=== PATIENT | female | born 1950 | race Caucasian/White ===

== ENCOUNTER 2016-12-24 08:52 | Day surgery (SDC) | payer MEDICARE, OTHER ==
[2016-12-24] VITALS (12 sets, daily range): BP systolic 122–174; BP diastolic 72–96; PULSE 54–107; RESP 13–25; O2SAT 94–99
[~2016-12-24] VITALS: Ht 157.5 cm; Wt 56.3 kg
[~2016-12-24 08:52] MED LIST: ALPR0.5T8 PO; CITA40TA PO; CLOP75TA3 PO; Clindamycin Inj 900 MG in IV Premix 1 EACH IV SCH; NEBI2.5T5 PO; PANT40TA2 PO; ZLP10T PO
[2016-12-24] MEDS ORDERED: Succinylcholine Chloride 20 mg/mL 5 mL Inj ONE (08:53)
[2016-12-24] MEDS ORDERED: Propofol 10,000 mCg/mL 20 mL Inj ONE (08:53)
[2016-12-24] MEDS ORDERED: fentaNYL-PF 50 mCg/mL 2 mL Inj ONE (08:53)
[2016-12-24] MEDS ORDERED: EPHEDrine/NS 5 mg/mL 5 mL Syringe ONE (08:53)
[2016-12-24] MEDS ORDERED: Dexamethasone 4 mg/mL Inj ONE (08:53)
[2016-12-24] MEDS ORDERED: HYDROmorphone 2 mg/mL Inj ONE (08:53)
[2016-12-24] MEDS ORDERED: MetoCLOpramide 5 mg/mL 2 mL Inj ONE (08:53)
[2016-12-24] MEDS ORDERED: Ondansetron 2 mg/mL 2 mL Inj ONE (08:53)
--- NOTE | 2016-12-24 09:38 | PCM.HPANE ---
Patient Data Date of Service: December 24, 2016 Surgeon Admitting Provider: Attending Provider:Terell Henry MD Primary Care Physician:Isi Landry MD Other Provider:Dariana Stinson Anesthesia Reason for Visit Bilateral Macromastia, Back Pain, Rash Ht/WT & BMI Height (Feet): 5 Height (Inches): 2 Weight (Kilograms): 55.338 Body Mass Index 22.00 Allergies Coded Allergies: Penicillins (Verified Allergy, Severe, SWELLING,ANAPHYLAXIS, 12/19/16) Past Anesthesia History Anesthesia History: Denies:: Anesthesia Reactions, Malignant Hyperthermia Diabetes History Hx Diabetes?: No MRSA MRSA: No Medications Blood Thinner: Plavix Last Dose Blood Thinner: Dec 11, 2016 Hypertension Medication: Yes Home Meds Incl Beta Linda: Yes (BYSTOLIC) Reported Medications Alprazolam 0.5 Mg Tablet0.5 Mg PO DAILY PRN For Anxiety Ref 0 12/23/16 Zolpidem (Ambien)10 Mg Tablet5-10 Mg PO HS PRN For Insomnia Ref 0 12/23/[address] (Protonix)40 Mg [id number] Mg PO DAILY Ref 0 12/19/16 Clopidogrel Bisulfate (Plavix)75 Mg [id number] Mg PO DAILY 30 Days Ref 0 12/19/16 Citalopram Hydrobromide (Celexa)40 Mg [id number] Mg PO DAILY Ref 0 12/19/16 Nebivolol (Bystolic)2.5 Mg Tablet2.5 Mg PO DAILY Ref 0 12/19/16 History History of ENT Problems?: Yes HEENT History: Denies:: Abnormal Airway Cataracts Difficult Intubation Dysphagia Glaucoma Hearing Problem Sinus Problem TMJ Denture Type: None Teeth Condition: Within Normal Limits Other HEENT Pertinent History: S/P TONSILLECTOMY Hx of Heart Problems?: Yes Cardiovascular History: Positive for:: Heart Murmur (PT REPORTS MURMUR, BUT NONE NOTED ON EXAM CURRENTLY) Hypertension Denies:: Chest Pain Other Cardiac History: 4+ METS Hx of Respiratory Problem?: No Respiratory History: Denies:: Use of C-PAP Machine Hx Neurologic Problems?: Yes Neurological History: Positive for:: CVA (02/2006) TIA (03/2006) Other Neurological Pertinent: R-sided hemiplegia, difficulty w/ fine motor Hx of GI Problems?: Yes Gastrointestinal History: Positive for:: Gastroesphageal Reflux Other GI Pertinent History: S/P APPY Hx of Problems?: No Female Hx: Positive for:: Problems with Breasts? (B/L MACROMASTIA=CURRENT PROBLEM) Denies:: Currently (S/P BTL) Skin History: Positive for:: History Skin Disorders? (INFRAMAMMARY/UPPER ABD RASH, PSORIASIS) Denies:: Pressure Ulcers Hx Musculoskeletal Problems?: Yes Musculoskeletal History: Denies:: Back Injury (C/OF UPPER BACK PAIN, NECK & SHOULDER PAIN R/T MACROMASTIA) Hx of Psycho/Social Problems?: No Hx Surgeries?: Yes (TONSILLECTOMY,BTL) Hx Any Other Health Problems?: Yes Other History: Positive for:: Hospitalization (CVA) Denies:: Cancer Endocrine Disease Thyroid Disease Hx Diabetes: No Hx Alcohol Use: NoHx Substance Use: No Smoking Status: Former Smoker Have You Smoked inLast 12 mo: No Stop/Bang Treated for Sleep Apnea?: No Do You Have a CPAP Machine?: No S-Snoring: Do You Snore Loudly: No T-Tired: feel tired, fatigued: No O-Obsered: Observed not breath: No P-Blood Pressure: treated: Yes B- Body Mass Index > 35 kg/m2: No A- Age over 50: Yes N- Neck Large Circumference: No G- Gender Male: No DARWIN Total Score: 2 DARWIN Risk Assessment: Low Risk, <3 Yes Risk Assessment Category Category 1A: Patient has history of documented sleep apnea, and HAS NOT received any narcotic, sedative or anesthesia administration during this stay. Category 1B: Patient has history of documented sleep apnea, and HAS received any narcotic , sedative or anesthesia administration during this stay Category 2: Patient has SUSPECTED Obstructive Sleep Apnea, and HAS received any narcotic , sedative or anesthesia administration during this stay. Category 3: Patient has SUSPECTED Obstructive Sleep Apnea and HAS NOT received narcotic, sedative or anesthesia administration during this stay. Category 4: Outpatient in Procedural Areas with known sleep apnea or who screen positive for High Risk via the STOP/BANG questionnaire. Exam Exam Vital Signs Vital Signs Date Time Temp Pulse Resp B/P Pulse Ox O2 Delivery O2 Flow Rate FiO2 12/24/16 09:20 36.2 54 16 122/72 98 Room Air General Appearance: Alert, Oriented X3, Cooperative, No Acute Distress HEENT/AIRWAY: MP 2, Neck Movement (FROM), Mouth Opening (3), Other (tmd<3, > 1cm overbite) Lungs: Normal Air Movement Heart: Exam Unremarkable, Regular Rate/Rhythm, Normal S1, Normal S2, No Murmurs /Rubs/Gallops Plan Impression Patient chart reviewed, patient interviewed and anesthestic plan with risks, benefits, and alternatives discussed, and informed consent obtained. ASA Physical Status: ASA3 Severe Disease Anesthetic Plan: GA Bene/Risks/Altern/Consents: Yes HP Complete Prior to Induction: Yes Esequiel Arriaga MD December 24, 2016 09:38
[2016-12-24] MEDS: Lactated Ringer's 1,000 ML IV SCH ×2 (09:45→10:58)
[2016-12-24] MEDS ORDERED: MetoCLOpramide 5 mg/mL 2 mL Inj IVPUSH PRN (11:10)
[2016-12-24] MEDS ORDERED: Lactated Ringer's 500 ML IV PRN ×2 (11:10)
[2016-12-24] MEDS ORDERED: HYDROmorphone 1 mg/mL Inj IVPUSH PRN ×2 (11:10)
[2016-12-24] MEDS ORDERED: Lactated Ringer's 1,000 ML IV SCH ×2 (11:10)
[2016-12-24] MEDS ORDERED: Ondansetron 2 mg/mL 2 mL Inj IVPUSH PRN ×2 (11:10)
[2016-12-24] MEDS ORDERED: EPHEDrine Sulfate 50 mg/mL Inj IVPUSH PRN (11:10)
[2016-12-24] MEDS ORDERED: Dexamethasone 4 mg/mL Inj IVPUSH PRN (11:10)
[2016-12-24] MEDS ORDERED: Phenylephrine 10,000 mCg/mL Inj IVPUSH PRN (11:10)
[2016-12-24] MEDS ORDERED: fentaNYL-PF 50 mCg/mL 2 mL Inj IVPUSH PRN ×2 (11:10)
[2016-12-24] MEDS ORDERED: Lactated Ringer's 1,000 ML IV ONE (11:25)
[2016-12-24] MEDS ORDERED: HYDROcodone-APAP 10-325 mg PO PRN (12:30)
--- NOTE | 2016-12-25 00:51 | PCM.ANEP1 ---
Post Anesthesia Phase 1 PACU Phase 1 Assessment Date of Service: December 24, 2016 Anesthetic Administered: GA Level of Alertness: Awake, talking [place]'s with Equal Strength: Yes Pain: No Pain Scale Score: 0 Nausea or Vomiting: No Oxygen Delivery: Simple Mask Lungs: Normal Air Movement Complications: No Follow up Care: No Esequiel Arriaga MD December 25, 2016 00:51
--- NOTE | 2016-12-25 11:54 | OP ---
[address] [address] OPERATIVE REPORT PATIENT: PERLA ALMAZAN : 1950 MR#: [id number] ADMIT: 12/24/2016 JOB ID: [id number] DATE OF SURGERY: 12/24/2016 PREOPERATIVE DIAGNOSIS(ES): Bilateral symptomatic macromastia. POSTOPERATIVE DIAGNOSIS(ES): Bilateral symptomatic macromastia. PROCEDURE: Bilateral breast reduction. SURGEON: Terell Henry M.D. SERVICE STATION CASHIER: Rico Fajardo PA-C who was present for necessary retraction, exposure and closure. ANESTHESIA: General anesthesia. ESTIMATED BLOOD LOSS: 30 cc. COMPLICATIONS: None apparent. SPECIMEN: Bilateral breast tissue to Pathology. Right side weighing 230 g, left side 230 g. DRAINS: Bilateral #15 round Glenn drain. COMPLICATIONS: None apparent. INDICATIONS FOR PROCEDURE: This is a 66-year-old female patient with a chronic history of bilateral symptomatic macromastia. The patient has back pain. The patient also has significant rash and infection under her breasts and in her upper abdomen. These have been refractory to conservative management. At this point, bilateral breast reductions are indicated. PROCEDURES AND FINDINGS: The patient was identified in the preoperative area. Surgical site was marked. With the patient in a sitting position, sternal notch was marked. The patient's midline was marked. Inframammary folds were marked. Newell pattern incisions were then made and marked with the new nipple position at 19 cm. The Newell pattern limbs were 8 cm each. The patient was then taken back to the operating room and placed supine on the operating table. Appropriate time-outs were taken. General anesthesia was induced smoothly. I then completed the Newell pattern incision marking with the patient in the supine position. The patient was then prepped and draped in the usual sterile manner. I first turned my attention to the right breast. The new nipple-areolar complex was marked with a 38 mm nipple sizer. Inferior pedicle was marked that is 9 cm at its base. Incisions were then made around the new nipple-areolar complex and around the inferior pedicle. The intervening skin was de-epithelialized. The Newell pattern incision was then made with a #10 blade down into the subcutaneous tissue. I then elevated superior skin flaps with electrocautery. The medial flap was approximately [address] down to the chest wall. The lateral flap was elevated off of the breast capsule. I then deepened the incision around the inferior pedicle down to the chest wall. The tissue between the inferior pedicle and the superior skin flap was then elevated off the chest wall and passed off to Pathology as a specimen. Tourniquet was released and hemostasis was obtained with electrocautery. The incision was temporarily stapled together with skin elvis. A new nipple-areolar complex was then marked with a 38 mm nipple sizer centered at 6.5 cm from the inframammary fold. Incision was then made around the keyhole and deepened through the skin flap with electrocautery allowing the nipple to be externalized. Once this has been done, I turned my attention to the left breast where a similar reduction was carried out. Again, new nipple-areolar complex was marked and incised. The inferior pedicle was marked and incised. The intervening skin was de-epithelialized. Inferior pedicle was defined in a similar manner to the right side. The skin flaps were elevated in a similar manner to the right side. The intervening soft tissue was elevated off the chest wall and passed off to Pathology as a specimen. The skin elvis were then used to temporarily stapled the skin together after hemostasis was obtained. At this point, the breast tissue from both sides weighed 230 g each. A #15 round Glenn drain was then obtained and placed into both surgical sites exiting through separate lateral stab incisions. The incisions were then reapproximated first with a layer of 3-0 Monocryl deep dermal suture, followed by 4-0 Monocryl running subcuticular suture. The patient tolerated the procedure well. Needle count, sponge count and instrument counts were correct at the end of the procedure. The patient was extubated and transported to recovery in stable condition.
--- NOTE | 2016-12-26 11:00 | PATH ---
SURGICAL PATHOLOGY Attending Physician:Terell Henry CASE STATUS: Signed Out PATIENT NAME: PERLA ALMAZAN PID: [id number] : 1950 DATE COLLECTED:12/24/2016 00:00 SPECIMEN: 1: Breast Reduction 2: Breast Reduction CLINICAL HISTORY: MACROMASTIA 1). RIGHT BREAST TISSUE 2). LEFT BREAST TISSUE FINAL DIAGNOSIS: 1. 2.RIGHT AND LEFT BREAST TISSUE WITH SKIN: (REDUCTION MAMMOPLASTY): BENIGN BREAST TISSUE, NEGATIVE FOR ATYPIA. 212 GRAMS OF TISSUE FROM THE RIGHT. 217 GRAMS OF TISSUE FROM THE LEFT. ICD10 CODE N62 GROSS DESCRIPTION: The specimens are received in formalin, labeled with the patient's name, and sublabeled as the following: (1) right breast tissue; (2) left breast tissue. (1) The specimen consists of multiple pieces of breast tissue (212 g, 18.5 x 11.5 x 2.8 cm in aggregate) partially covered by skin (16.0 x 9.5 cm). The breast tissue is fibrofatty with no nodules, masses or lesions identified. The skin is castro-white and unremarkable. Section code: (1A, 1B) breast tissue, mill representative. (2) The specimen consists of multiple pieces of breast tissue (217 g, 17.4 x 13.5 x 3.0 cm in aggregate) partially covered by skin (16.0 x 11.5 cm). The breast tissue is fibrofatty with no nodules, masses or lesions identified. The skin is castro-white and unremarkable. Section code: (2A, 2B) breast tissue, mill representative. 12/25/16 JM MICRO DESCRIPTION: See diagnosis. ICD-9 CODES: CPT CODES: 1: 86146 2: 02353 Electronically Signed Out Ethan Alex MD [facility] [address], [place] [address] Technical component performed at [facility], [facility] [address], [place], [address]
== END 2016-12-24 23:59 | disposition home or self-care (01) ==
LOC: SAS 08:52
PROVIDERS: ATTEND Plastic Surgery
DX: N62 Hypertrophy of breast (principal); M54.6 Pain in thoracic spine; R21 Rash and other nonspecific skin eruption; R01.1 Cardiac murmur, unspecified; Z86.73 Personal history of transient ischemic attack (TIA), and cerebral infarction without residual deficits; L40.9 Psoriasis, unspecified; Z87.891 Personal history of nicotine dependence; Z79.01 Long term (current) use of anticoagulants
CPT/HCPCS: 19318; J0330; J1100; J1170; J2250; J2405; J2765; J3010; J7120